=== PATIENT | female | born 1995 | race Caucasian/White ===

== ENCOUNTER 2024-06-02 12:07 | Day surgery (SDC) | payer OTHER ==
[2024-06-02] MEDS ORDERED: hydrALAZINE 20 MG/ML VIAL SLOW IVP PRN (13:10)
[2024-06-02 13:16] LABS: Fetal Membranes Rupture No Membranes Rupture (No Rupture)
[2024-06-02 13:36] VITALS: BMI 24.3
== END 2024-06-02 13:30 | disposition home or self-care (01) ==
LOC: CSHLD/OP 12:07
PROVIDERS: ATTEND Student in an Organized Health Care Education/Training Program
DX: O99.513 Diseases of the respiratory system complicating pregnancy, third trimester (principal); J45.909 Unspecified asthma, uncomplicated; Z03.71 Encounter for suspected problem with amniotic cavity and membrane ruled out; O99.343 Other mental disorders complicating pregnancy, third trimester; F39 Unspecified mood [affective] disorder; F41.9 Anxiety disorder, unspecified; F32.A Depression, unspecified; Z3A.34 34 weeks gestation of pregnancy; Z87.42 Personal history of other diseases of the female genital tract; Z91.018 Allergy to other foods; Z91.010 Allergy to peanuts; Z79.899 Other long term (current) drug therapy
CPT/HCPCS: 84112; 87480; 87510; 87660; 99284

== ENCOUNTER 2024-06-15 21:05 | Inpatient (IN) | payer OTHER ==
[2024-06-15] MEDS ORDERED: hydrALAZINE 20 MG/ML VIAL SLOW IVP PRN (21:51)
[2024-06-15 21:55] VITALS: BMI 24.3
[2024-06-15] MEDS ORDERED: Lactated Ringer's 1,000 ML IV SCH (22:15)
[2024-06-15 22:25] LABS: Bilirubin Neg (Negative); Blood, Urine Negative (Negative); Clarity Clear (Clear); Glucose, Urine (Dipstick) Normal (Negative); Ketone, Urine 15 mg/dL (Negative); Leukocyte Negative (Negative); Nitrite Negative (Negative); Protein, Urine (Dipstick) 15 mg/dl (Neg-Trace); Specific Gravity, Urine 1.015 (1.005-1.030); Urobilinogen Normal mg/dL (Less than 2); pH, Urine 6.5 (5.0-9.0)
[2024-06-15 22:35] LABS: #Basophils 0.03 10x3/uL (0.0-0.2); #Eosinophils 0.07 10x3/uL (0.0-0.5); #Monocytes 0.49 10x3/uL (0.0-1.1); #Neutrophils 5.86 10x3/uL (1.5-8.4); %Basophils 0.4 % (0.0-2.0); %Eosinophils 0.8 % (0.0-6.0); %Lymphocytes 21.8 % (18.0-47.0); %Monocytes 5.9 % (0.0-10.0); %Neutrophils 70.4 % (40.0-75.0); Hematocrit 33.9 % (34.9-44.5); Hemoglobin 11.2 g/dL (12.0-15.5); Mean Corpuscular Hemoglobin 27.1 pg (27.0-33.0); Mean Corpuscular Volume 81.9 fL (81.6-98.3); Mean Platelet Volume 10.1 fL (7.4-10.4); Platelet Count 229 10x3/uL (150-450); Red Blood Cell (RBC) Count 4.14 10x6/uL (3.90-5.03); White Blood Cell (WBC) Count 8.33 10x3/uL (3.5-10.5)
[2024-06-15 22:50] LABS: ALT (SGPT) 26 U/L (8-55); AST (SGOT) 24 U/L (5-34); Albumin 2.9 g/dL (3.5-5.0); Alkaline Phosphatase 242 U/L (40-110); Anion Gap 11 mmol/L (10-20); BUN (Urea Nitrogen) 7 mg/dL (7.0-18.7); Bilirubin, Total 0.3 mg/dL (0.2-1.2); Calc. Creatinine Clearance 142 mL/min (70-130); Calcium 8.8 mg/dL (7.8-10.44); Carbon Dioxide 20 mmol/L (22-29); Chloride 110 mmol/L (98-107); Estimated GFR 122; Globulin 3.3 g/dL (2.4-3.5); Glucose 102 mg/dL (70-105); Potassium 3.4 mmol/L (3.5-5.1); Protein, Total 6.2 g/dL (6.0-8.3); Sodium 138 mmol/L (136-145)
[2024-06-15 22:50] LABS: Bacteria/HPF None Seen HPF (None Seen); CAUTI Indications for Culture Pregnancy; RBC/HPF 0-3 HPF (0-3); Squamous Epithelial 0-3 HPF (0-3); Urine Culture Reflex Yes Yes; WBC/HPF 0-3 HPF (0-3)
[2024-06-15] MEDS: Morphine 4 MG/ML VIAL SLOW IVP SCH (23:23)
[2024-06-16] MEDS: Potassium Chloride 10 MEQ TAB PO SCH (00:07)
[2024-06-16] MEDS: Acetaminophen 325 MG TAB PO SCH (01:33)
[2024-06-16] MEDS ORDERED: hydrALAZINE 20 MG/ML VIAL SLOW IVP PRN (02:07)
[2024-06-16] MEDS ORDERED: Carboprost 250 MCG/ML AMP IM PRN (02:07)
[2024-06-16] MEDS ORDERED: Promethazine HCl 25 MG/ML VIAL IM PRN ×2 (02:07→04:55)
[2024-06-16] MEDS ORDERED: fentaNYL 50 mcg/mL 1 mL Vial SLOW IVP PRN ×2 (02:07→04:55)
[2024-06-16] MEDS ORDERED: Methylergonovine 0.2 MG/ML VIAL IM PRN (02:07)
[2024-06-16] MEDS ORDERED: Ondansetron PF 4 MG/2 ML Vial IVP PRN ×2 (02:07→04:55)
[2024-06-16] MEDS ORDERED: Misoprostol 200 MCG TAB PR PRN (02:07)
[2024-06-16] MEDS ORDERED: Diphenoxylate HCl/Atropine Tablet PO PRN (02:07)
[2024-06-16] MEDS ORDERED: Oxytocin 30 units/NS 500 ML 500 ML IV SCH (02:15)
[2024-06-16] MEDS ORDERED: Famotidine/PF 20 mg/2ml Vial SLOW IVP PRN (02:20)
[2024-06-16] MEDS ORDERED: Bicitra 30 ML UDCUP PO PRN (02:20)
[2024-06-16] MEDS ORDERED: Azithromycin 500 MG in Sodium Chloride 0.9% 250 ML 250 ML IVPB SCH (02:30)
[2024-06-16] MEDS ORDERED: CEFAZOLIN 2 GM in Sodium Chloride 0.9% 100 ML IVPB SCH (02:30)
[2024-06-16 03:52] LABS: Syphilis Antibody Nonreactive (Nonreactive); Syphilis Antibody Index 0.05 S/CO (<1.00 Non-Reactive)
[2024-06-16 04:25] LABS: HBsAg Index 0.23 S/CO (0-0.99); Hep B Surf Ag - L&D Non-Reactive S/CO (NonReactive)
[2024-06-16] MEDS ORDERED: Naloxone HCl 0.4 mg/ml Vial IVP PRN ×2 (04:55)
[2024-06-16] MEDS ORDERED: Naloxone HCl 0.4 mg/ml Vial IV PRN (04:55)
[2024-06-16] MEDS ORDERED: diphenhydrAMINE 50 MG/ML VIAL IVP PRN (04:55)
[2024-06-16] MEDS ORDERED: Meperidine HCl/PF 25 MG (1 mL) VIAL SLOW IVP PRN (04:55)
[2024-06-16] MEDS ORDERED: Moisturizing Cream (Eucerin) 113 GM JAR TOP PRN (04:55)
[2024-06-16] MEDS ORDERED: Acetaminophen 325 MG TAB PO PRN (04:57)
[2024-06-16] MEDS ORDERED: Simethicone Chewable 80 MG TAB PO PRN (04:57)
[2024-06-16] MEDS ORDERED: diphenhydrAMINE 25 MG CAP PO PRN (04:57)
[2024-06-16] MEDS ORDERED: Bisacodyl 10 MG SUPP PR PRN (04:57)
[2024-06-16] MEDS ORDERED: Lanolin Ointment 7 GM TUBE TOP PRN (04:57)
[2024-06-16] MEDS ORDERED: Communication Order-Pharmacy FS SCH (05:00)
[2024-06-16] MEDS: Tranexamic Acid 1,000 MG/10 ML VIAL IVP PRN (05:20)
[2024-06-16] MEDS: Ondansetron PF 4 MG/2 ML Vial IVP PRN (05:20)
[2024-06-16 06:45] LABS: D-Dimer Test 12.7 mcg/mL (0.19-0.50); INR-International Normal Ratio 0.9; PTT 24.6 sec (22.0-33.0); Prothrombin Time 10.1 sec (9.5-12.1)
[2024-06-16] MEDS ORDERED: Ketorolac Tromethamine 30 MG (1 mL) VIAL IVP SCH (11:00)
[2024-06-16] MEDS ORDERED: Zolpidem Tartrate 5 MG TAB PO PRN (17:00)
[2024-06-16] MEDS: Sterile Water 10 ML ONE (17:40)
[2024-06-16] MEDS: Dexamethasone 10 MG/ML VIAL ONE (17:40)
[2024-06-16] MEDS: Ondansetron PF 4 MG/2 ML Vial ONE (17:40)
[2024-06-16] MEDS: Morphine PF 10 MG/10 ML VIAL ONE (17:40)
[2024-06-16] MEDS: Ketorolac Tromethamine 30 MG (1 mL) VIAL ONE ×2 (17:40→17:41)
[2024-06-16] MEDS: Phenylephrine 40 MG/NS 250 ML 250 ML ONE (17:40)
[2024-06-16] MEDS: Dexmedetomidine 200 MCG/2 ML VIAL ONE (17:40)
[2024-06-16] MEDS: Ferrous Sulfate 325 MG TAB PO SCH (17:41)
[2024-06-16] MEDS: Prenatal Vitamin 1 TAB PO SCH (17:41)
[2024-06-16] MEDS: Tranexamic Acid 1,000 MG/10 ML VIAL IVP SCH (17:41)
[2024-06-16] MEDS: Oxytocin 10 UNITS/ML VIAL ONE ×2 (17:41)
[2024-06-16] MEDS: Boostrix 0.5 ML (Tdap) VIAL (>/=7 yrs of age) IM ONE (17:41)
[2024-06-16] MEDS: Docusate 100 MG CAP PO PRN (20:31)
[2024-06-16] MEDS: Ibuprofen 800 MG TAB PO SCH (20:31)
[2024-06-17] MEDS: Acetaminophen 500 MG TAB PO PRN ×2 (02:51→22:18)
[2024-06-17 05:32] LABS: Hemoglobin 7.4 g/dL (12.0-15.5)
[2024-06-17] MEDS: HYDROcodone/Acetaminophen 5/325 mg Tablet PO PRN (08:09)
[2024-06-18 05:29] LABS: Hematocrit 21.8 % (34.9-44.5); Hemoglobin 7.2 g/dL (12.0-15.5)
[2024-06-18 16:02] LABS: Hematocrit 27.7 % (34.9-44.5); Hemoglobin 9.3 g/dL (12.0-15.5)
[2024-06-19 08:53] VITALS: BP 125/83; TEMP 97.6
== END 2024-06-19 16:05 | disposition home or self-care (01) | DRG 787 ==
LOC: CSHLD/OP 21:05 → CSHLD 06-16 02:02 → CSHPP 06-16 09:13
PROVIDERS: ADMIT Student in an Organized Health Care Education/Training Program; ATTEND Student in an Organized Health Care Education/Training Program
PROC: 10D00Z1 Extraction of Products of Conception, Low, Open Approach (ICD-10-PCS; principal; 2024-06-16)
DX: O60.14X0 Preterm labor third trimester with preterm delivery third trimester, not applicable or unspecified (principal); O72.1 Other immediate postpartum hemorrhage; Z37.0 Single live birth; O26.893 Other specified pregnancy related conditions, third trimester; Z3A.39 39 weeks gestation of pregnancy; Z67.41 Type O blood, Rh negative
CPT/HCPCS: 36415; 36430; 51702; 80053; 81001; 85014; 85018; 85025; 85049; 85300; 85362; 85384; 85610; 85730; 86780; 86850; 86870; 86900; 86901; 86922; 87086; 87340; 99285; J1100; J1885; J2270; J2274; J2405; J2590; P9016